=== PATIENT | male | born 1960 | race Caucasian/White ===

== ENCOUNTER 2016-09-10 13:00 | Inpatient (IN) | payer OTHER ==
[~2016-09-10] VITALS: Ht 177.8 cm; Wt 84.1 kg
[2016-09-10] VITALS (13 sets, daily range): BP systolic 99–142; BP diastolic 60–76; PULSE 42–64; RESP 10–20; O2SAT 97–99
--- NOTE | 2016-09-10 13:13 | ED.REPORT ---
HPI-Chest Pain 40 and Over Date of Service Sep 10, 2016 ED Provider: The patient is a 56 year old male with history of high cholesterol who presents to the emergency department complaining of chest pain that has been intermittent over the last 2 weeks. 2 weeks ago he had 2 episodes of right jugular pain on the right side after after exercise. He thought this was due to not eating before he worked out. He did not experience any symptoms until a few days ago when he felt bad while snowboarding and decided to stop and rest. He thought he was feeling bad due to not sleeping well the night before. Today at 1030 he had another episode and paid more attention and noticed he had substernal chest pressure that radiated into his left shoulder. He also noticed nausea and diaphoresis. [place] aspirin and nitroglycerin. His blood pressure was noted to be high (181/115) in the aid room. At this time he is feeling better but does mention some heart burn and headache. He denies shortness of breath, vomiting. Nursing Notes Stated Complaint: CHEST DISCOMFORT Chief Complaint: Chest Pain Nursing Notes Reviewed: Yes Allergies: Coded Allergies: No Known Allergies (Unverified , 09/10/16) General Time Seen by MD: 13:12 Chief Complaint Chest pain Hx Obtained From: Patient, Spouse, Son Arrived By: Walk-in Sudden in Onset?: Yes Onset Occurred: 1 - 4 hours ago Symptom Duration: Since onset Location: : Substernal Quality: Pressure Radiation: : Does not radiate Migration/Movement: Reports: None Severity: Current: Severe Severity: Maximum: No pain Recent Healthcare: No recent doctor visit, No recent hospitalization Similar Sx Previous: No Past Medical History Past Medical History High cholesterol Past Surgical History None Family History Noncontributory Smoking History Never Smoker Social History Alcohol Use: 1-3 per day (beer or wine) Drug Use: Denies drug use Other Social History: Good social support, , Local resident Occupation Medic Ambulatory Status Independent Review of Systems Review of Systems Note: +heart burn Constitutional: Reports: Fatigue Respiratory: Denies: Shortness of breath Cardiovascular: Reports: Chest pain GI: Reports: Nausea, Denies: Abdominal pain, Vomiting Musculoskeletal: Reports: Joint pain Skin: Reports Diaphoresis Neurologic: Reports: Headache Complete sys rev & neg: except as marked. Physical Exam Initial Vital Signs Vital Signs (First) Date Time Temp Pulse Resp B/P Pulse Ox O2 Delivery O2 Flow Rate FiO2 09/10/16 13:10 43 12 142/76 99 Room Air Initial VS: Reviewed Head / Eyes: Atraumatic, Normocephalic, PERRL ENT: Mucous membranes moist, Conjunctiva normal, No scleral icterus Neck: Supple, Non-tender, Full range of motion Lymphatic: No lymphadenopathy Extremities: Vascular intact, Neuro intact, No swelling, No tenderness Skin: Warm, Dry, No cyanosis Neurologic: Alert, Oriented, Nonfocal Psychiatric: Mood/affect normal, Behavior normal, Normal thought content General/Constitutional: Awake, Alert, No acute distress, Well appearing Respiratory / Chest: Atraumatic, Breath sounds NL, Breath sounds = bilat, No respiratory distress, No rales, No rhonchi, No wheezing, No stridor, No chest tenderness Cardiovascular: Heart rate NL, Regular rhythm, Heart sounds NL, No gallop, No murmurs, No rubs, Peripheral circulation NL, Pulses = bilaterally, No gross BP differential Abdomen: Atraumatic, Soft, Non-tender, McBurney's non-tender, No guarding, No rebound, BS normoactive, No distention, No hernia, No palpable mass Interpretation & Diagnostics Lab Results Interpretation Result Diagram: 09/10/16 1321 09/10/16 1321 Test 09/10/16 13:21 White Blood Count 12.3th/mm3 (3.8-10.1) Red Blood Count 5.17mil/mm3 (4.40-5.80) Hemoglobin 15.5g/dL (13.8-17.2) Hematocrit 43.8% (41.0-50.0) Mean Corpuscular Volume 84.7fL (81-100) Mean Corpuscular Hemoglobin 30.0pg (27.0-35.0) Mean Corpuscular Hemoglobin Concent 35.4% (32.0-37.0) Red Cell Distribution Width 12.9% (12.3-15.4) Platelet Count 230bil/L (150-400) Neutrophils (%) (Auto) 74.4% (40-74) Lymphocytes (%) (Auto) 17.1% (14-46) Monocytes (%) (Auto) 7.7% (4-12) Eosinophils (%) (Auto) 0.3% (0-5) Basophils (%) (Auto) 0.3% (0-3) Sodium Level 140mEq/L (134-144) Potassium Level 3.6mEq/L (3.5-5.2) Chloride Level 102mEq/L (97-108) Carbon Dioxide Level 24mmol/L (18-29) Blood Urea Nitrogen 15mg/dL (6-24) Creatinine 0.83mg/dL (0.76-1.27) Estimat Glomerular Filtration Rate 102mL/min (>59) Glucose Level 91mg/dL (60-99) Calcium Level 9.5mg/dL (8.5-10.1) Magnesium Level 2.1mg/dL (1.6-2.6) Total Bilirubin 0.5mg/dL (0.0-1.2) Aspartate Amino Transf (AST/SGOT) 18U/L (0-50) Alanine Aminotransferase (ALT/SGPT) 16U/L (0-44) Alkaline Phosphatase 62U/L (25-150) Troponin T 0.043ug/L (0.0-0.011) Total Protein 7.3g/dL (6.4-8.4) Albumin 4.8g/dL (3.4-5.0) ECG Interpretation ECG Interpretation: Sinus bradycardia with a rate of 46 ST elevation of 1 mm in V2-V5, no reciprocal changes No STEMI Time: 13:10 Interpreted by: ED physician ECG Interpretation: Reviewed with Dr. Caitlyn Keller point elevation ST elevation in V2-V5 No STEMI Time: 13:29 Interpreted by: ED physician ECG Interpretation: Progression of ST elevations Pt will be taken to tender labor Time: 14:26 Interpreted by: ED physician X-Ray Chest Interpretation Chest Xray Interpretation: IMPRESSION: No acute cardiopulmonary disease. Dictated by: Jose Luis DOTY Interpreted: Andreina Pugh MD on 09/10/2016 at 14:27 Interpretation / Wet Read by: Interpret - Radiologist Re-Eval/Medical Decision Source of Hx: Family Time of Eval: 13:22 Re-Evaluation/Progress Note: Dr. Damian is at bedside discussing the patient's history. Time of Eval: 14:21 Re-Evaluation/Progress Note: Rechecked the patient. He is still complaining of chest pressure. Discussed results and plan for admission. All questions were addressed. Time of Eval: 14:30 Re-Evaluation/Progress Note: The patient is being transferred to the tender labor. Consultation #1: Referral / Consult Name: Gurvinder Damian MD Consulted With: Cardiology Call Returned at: 13:20 Jukebox Route Driver: Agrees with eval, Agrees with plan Note: Discussed EKG findings Consultation #2: Referral / Consult Name: Gurvinder Damian MD Consulted With: Cardiology Call Returned at: 13:30 Note: Evaluated the repeat EKG, not concerning for STEMI Consultation #3: Referral / Consult Name: Gurvinder Damian MD Consulted With: Cardiology Call Returned at: 14:21 Jukebox Route Driver: Agrees with eval, Agrees with plan, Requested tender labor Counseled Regarding: Diagnosis, Lab results, Need for admission Discharge & Departure Primary Impression: Acute coronary syndrome Disposition: ADMITTED TO HOSPITAL Discharge Condition All VS Reviewed: Yes Condition: Stable Referrals: Venu Rodriguez MD (Family) Crit Care Except Billable Proc Time Spent: 30-74 minutes Services Performed: Patient management by me, Time spent at bedside, Reviewing test results, Reviewing imaging, Discussing patient care, Documentation in record, Time with fam/surrogate Scribe Attestation Portions of this note were transcribed by Lynn Argueta. I, Dr. Nunn personally performed the history, physical exam and medical decision-making; I reviewed and confirmed the accuracy of the information in the transcribed note. Signed by: Lisa Castillo, 09/10/2016 at 0170. copies to: Venu Rodriguez MD, Shawna L MD Sep 10, 2016 13:13 Lynn Argueta Sep 10, 2016 13:15
[2016-09-10] MEDS ORDERED: Nitroglycerin 50 mg/250 mL D5W 50,000 MCG in IV Premix 1 EACH IV ONE (13:20)
[2016-09-10] MEDS ORDERED: Heparin 25K Unit/500mL 0.45 NS 25,000 UNIT in IV Premix 1 EACH IV ONE (13:20)
[2016-09-10] MEDS ORDERED: Heparin 5,000 Unit/mL Inj IVPUSH ONE (13:20)
[2016-09-10] MEDS ORDERED: Nitroglycerin 50,000 mcg/250 mL D5W Premix IV ONE ×2 (13:28→14:25)
[2016-09-10 13:30] LABS: BASOPHILS % (AUTO) 0.3 % (0-3); EOSINOPHILS % (AUTO) 0.3 % (0-5); MONOCYTES % (AUTO) 7.7 % (4-12); Mean Corpuscular Volume 84.7 fL (81-100); NEUTROPHILS % (AUTO) 74.4 % (40-74); Platelet Count 230 bil/L (150-400)
[2016-09-10 14:02] LABS: Magnesium 2.1 mg/dL (1.6-2.6)
[2016-09-10 14:03] LABS: TROPONIN T 0.043 ug/L (0.0-0.011)
[2016-09-10] MEDS ORDERED: 0.9% Sodium Chloride 2,000 ML ONE (14:25)
[2016-09-10] MEDS ORDERED: Heparin 1,000 Unit/mL 10 mL Inj ONE ×4 (14:25→16:28)
[2016-09-10] MEDS ORDERED: Heparin 1,000 Units/500 mL NS Premix IV ONE (14:25)
--- NOTE | 2016-09-10 14:27 | DRSVH ---
PROCEDURE: X-RAY CHEST ONE VIEW, PORTABLE ([id number]) INDICATIONS: cp TECHNIQUE: One view of the chest was acquired. COMPARISON: None. FINDINGS: Surgical changes and devices: None. Lungs and pleura: No pleural effusions or pneumothorax. Lungs are clear. Mediastinum: Mediastinal contours appear normal. Heart size is normal. Bones and chest wall: No suspicious bony lesions. Overlying soft tissues appear unremarkable. IMPRESSION: No acute cardiopulmonary disease. Dictated by: Jose Luis Gotti [facility] Interpreted: Andreina Pugh MD on 09/10/2016 at 14:27 Transcribed by: DRISS on 09/10/2016 at 14:27 Approved by: Andreina Pugh MD, PhD on 09/10/2016 at 17:02
[2016-09-10] MEDS ORDERED: fentaNYL-PF 50 mCg/mL 2 mL Inj ONE ×3 (14:40→15:53)
[2016-09-10] MEDS ORDERED: Atropine 1 mg/10 mL (Code) Syringe ONE (15:06)
[2016-09-10] MEDS ORDERED: 0.9% Sodium Chloride 1,000 ML ONE ×2 (15:20→15:34)
[2016-09-10] MEDS ORDERED: DOPamine 800 mg/250 mL D5W Premix IV ONE (15:31)
[2016-09-10] MEDS ORDERED: Ondansetron 2 mg/mL 2 mL Inj ONE ×2 (15:42→15:51)
--- NOTE | 2016-09-10 17:40 | NUR ---
Arrival to CCU Patient escorted from trestle mainternance laborer to room 2014. Alert and oriented x 3. No reported pain at time of arrival. SB per quality assurance monitor body. Normotensive. Denies chest discomfort. Transparent dressing to right groin site, c/d/i. No swelling, pain or hematoma at groin site. Pulses intact. Sp02 >92% on room air. Patient oriented to room and call light. Plan of care reviewed. Will continue to monitor.
[2016-09-10] MEDS ORDERED: Atropine 1 mg/10 mL (Code) Syringe IVPUSH PRN (18:15)
[2016-09-10] MEDS ORDERED: 0.9% Sodium Chloride 250 ML BOLUS IV PRN (18:15)
[2016-09-10] MEDS ORDERED: 0.9% Sodium Chloride 400 ML (4 HRS) IV ONE (18:15)
[2016-09-10] MEDS ORDERED: Ondansetron 2 mg/mL 2 mL Inj IVPUSH PRN (18:15)
[2016-09-10] MEDS ORDERED: Sodium Chloride LOK Flush 10 mL Syringe IVFLUSH PRN (18:15)
--- NOTE | 2016-09-10 18:25 | DRSVH ---
[facility] [address] [facility] [facility] [address] Echocardiogram Report Name: MAK BRAGG Study Date: 09/10/2016 Hospital Exam Location: [facility] Gender: Male : 1960 Age: 56 yrs Reason For Study: NSTEMI Ordering Physician: Performed By: Aniya Connors Interpretation Summary No pericardial effusion. Procedure: A STAT limited 2D echocardiogram was done in the laborer tree tapping to assess for pericaridal effusion in the setting of stent placement. The study quality was technically good. Pericardium/ Pleura There is no pericardial effusion. Electronically signed by: Gurvinder Wall on Reading Physician:09/10/2016 06:24 PM
[2016-09-10] MEDS ORDERED: CREST10T PO (21:31)
--- NOTE | 2016-09-10 21:32 | DI95 ---
[address] [address] INTERVENTIONAL CARDIAC CATHETERIZATION PATIENT: MAK BRAGG : 1960 MR#: [id number] ADMIT: 09/10/2016 JOB ID: [id number] PATIENT PROFILE: The patient is a 56-year-old male who presented with non ST elevated myocardial infarction. PROCEDURE: 1. Retrograde left heart catheterization. 2. Selective coronary angiography. 3. Balloon angioplasty and stenting to the mid circumflex artery. 4. Vascular closure device, StarClose. COMPLICATION: Transient hypotension and coronary dissection. METHOD: Retrograde left heart catheterization was performed from the right groin under 1% lidocaine local anesthesia using a 6-Tajik sheath. Selective coronary angiogram was performed in multiple projections, including cranial and caudal angulations with hand injected contrast via JL4 and 3DRC catheters. Heparin 100 units/kg were given. A 6-Tajik JL4 guide was advanced to the left coronary ostium. A Run-through wire was placed inside the circumflex artery. The lesion was pre-dilated with a 1.25 mm and 2.0 mm balloons. This caused coronary dissection at this point. A 2.5 mm balloon was then used for further dilation of the mid circumflex artery. The patient required fluid bolus, atropine and intravenous dopamine. A Xience 2.25 x 15 mm stent was placed inside the distal mid circumflex artery lesion and deployed at 14 atmospheres for 15 seconds. A Xience 2.5 x 15 mm stent was placed proximal to the first stent and deployed at 10 atmospheres for 15 seconds. A Xience 2.75 x 12 mm stent was placed proximal to the second stent and deployed at 12 atmospheres for 15 seconds. A 2.5 mm balloon was used for post stent deployment dilation. It was inflated up to 16 atmospheres. A 3.0 mm balloon was used for post stent deployment dilation. It was inflated up to 8 atmospheres. An attempt to advance a Xience 2.25 x 12 mm stent to the distal lesion was unsuccessful. The distal lesion was then dilated with a 2.5 x 15 mm balloon. This balloon was inflated up to 14 atmospheres. A Xience 2.75 x 12 mm stent was placed proximal to the third stent and deployed at 14 atmospheres. Final angiogram was obtained. A 6-Tajik angulated pigtail catheter was advanced to the left ventricle and left ventricular pressure was obtained. Right femoral angiogram was performed before sheath removal. Hemostasis was achieved by using a StarClose device. The patient tolerated the procedure well. He was transferred to ICU in good condition. TOTAL CONTRAST USED: 280 cc. FLURO TIME: 20.7 minutes. RESULTS: 1. Selective coronary angiogram: a. Left main coronary artery has minimal disease. b. The left anterior descending artery is transapical and has diffuse irregularities of 20 to 30% stenosis. c. The codominant circumflex artery is occluded in the mid portion. There are faint collaterals filling from the 1st obtuse marginal branch and the left anterior descending into the distal circumflex artery. d. The codominant right coronary artery has diffuse disease with 30 % to 40% stenosis. 2. Balloon angioplasty and stenting was performed to the occluded mid circumflex artery by deploying four drug-eluting stents to achieve an excellent angiographic result with JORGE-3 flow distally. 3. Aortic pressure is 103/64 mmHg. Left ventricular pressure is 107/10 mmHg. 4. Left ventricular end-diastolic pressure is 18 mmHg. CONCLUSION: 1. Diffuse fyiz-bh-ysetmdbx coronary artery disease. 2. Occluded mid circumflex artery with [id number] collaterals to the distal circumflex artery. This was successfully treated with four drug-eluting stents. 3. LVEDP is 18 mmHg. MTDD
[2016-09-10] MEDS ORDERED: CHOL500051 PO (21:33)
[2016-09-10] MEDS ORDERED: OMEG300C3 PO (21:34)
--- NOTE | 2016-09-10 23:15 | NUR ---
Post Cath, Assumed care 1900. Denies chest pain or discomforts. Right groin site stable without hematoma or bleeding. Tele sinus pita with hr 40s to 50s. Blood pressure 100s systolic. Ivf Ns at 100ml/h. Ate 100% of dinner. Tolerated well. Spouse at bedside and updated. 2200 Right groin remains stable. Pt up to bathroom with minimal assist. Tolerated well. Post cath checks completed. Changed to PCC status. Iv Saline locked.
[2016-09-11] VITALS: BP 86/48; PULSE 45; RESP 16; O2SAT 98
--- NOTE | 2016-09-11 00:47 | NUR ---
Hypotension 0000 Blood pressure 86/48. Tele sinus rhythm 40s. PT alert and oriented. Denies pain or discomforts. Right groin site stable without bleeding or hematoma. NS 500ml iv bolus started and Dr Brady notified with orders received. Report given to Ignacio Mckeon
[2016-09-11 04:37] VITALS: BP 95/56; PULSE 48; RESP 16; O2SAT 96
[2016-09-11 04:50] LABS: Mean Corpuscular Hemoglobin 29.5 pg (27.0-35.0); Mean Corpuscular Volume 85.8 fL (81-100)
--- NOTE | 2016-09-11 06:11 | NUR ---
Cardiac Pt BP after 500mL bolus stable. MAP's 65-70. Pt denies CP, SOB or dizziness. Tele SB 40's groin site soft, mildly tender with no hematoma noted.
--- NOTE | 2016-09-11 06:58 | CONS ---
[address] [address] CONSULTATION REPORT PATIENT: MAK BRAGG : 1960 MR#: [id number] ADMIT: 09/10/2016 JOB ID: [id number] DATE OF SERVICE: 09/10/2016 REQUESTED BY: Annetta Nunn MD. REASON FOR EVALUATION: Chest discomfort. HISTORY: The patient is a 56 years old male with history of hypercholesterolemia. He otherwise has been healthy all his life. He is physically very active. The patient reported that he started feeling weird in the past few weeks. He had aching in his right jugular area with extreme physical exertion. He had been snowboarding for the past week. Today, while he was snowboarding with a lot of excitement with the adrenaline surge, he developed chest pressure. It was a squeezing sensation that radiated to his left shoulder. It happened around 10:30 a.m. His chest felt very tight. His blood pressure was 181/115 at that time. He took one nitroglycerin and his chest pressure subsided. Medics brought him to [facility] Emergency Department. The total episode of chest discomfort lasted for 2 hours. He feels back to his normal self at the present time. EKG on arrival shows sinus bradycardia rate 48 per minute. J-point elevation. PAST MEDICAL HISTORY: 1. Hypercholesterolemia. 2. Knee injury. CURRENT MEDICATIONS: 1. Crestor 10 mg 3 times per week. Higher dose of Crestor causes rhabdomyolysis. 2. Multivitamin. 3. Fish oil. 4. Vitamin D. ALLERGIES: HAZELNUTS cause lip swelling. SOCIAL HISTORY: He tried smoking a little when he was in grade seven. He drinks beer or wine, one glass per day. FAMILY HISTORY: His father from colon cancer. His sister suffered a stroke in her 50 's. REVIEW OF SYSTEMS: All 10 systems reviewed and noncontributory. PHYSICAL EXAMINATION: Reveals a middle-aged male, appears in no acute distress. Temperature is 36.1. Blood pressure initially was 142/75 and came down to 113/71. Pulse 53. Skin is warm and dry. Head and face have normal configuration. Anicteric sclerae. Moist mucosa. Neck: Supple. No jugular venous distention or carotid bruits. Chest: Normal expansion. Lungs are clear to auscultation. Heart: The first and second heart sounds normal. No gallop or murmur. Abdomen: Soft, nontender and without hepatosplenomegaly. Back: No CVA tenderness. Extremities: No clubbing, cyanosis, or edema. Peripheral pulses are equal bilaterally. Neurologic: Grossly intact. IMPRESSION: 1. Acute coronary syndrome, likely related to severe hypertension at that time. 2. Hypercholesterolemia. 3. History of rhabdomyolysis on high dose statin 4. Family history of premature atherosclerosis.. PLAN: The patient will be monitored in the telemetry unit. He will be treated with aspirin, nitroglycerin, IV heparin and statin. Serial cardiac enzymes and EKGs will be obtained. MTDD
[2016-09-11 08:00] VITALS: BP 98/61; PULSE 53; PULSE 57; RESP 18; O2SAT 96
--- NOTE | 2016-09-11 09:13 | DRSVH ---
[facility] [address] [place] [address] Echocardiogram Report Name: MAK BRAGG Study Date: 09/11/2016 Height: 70 in Hospital Exam Location: [facility] Weight: 185 lb Gender: Male BSA: 2. 0 m2 : 1960 Age: 56 yrs BP: 110 /58 mmHg Reason For Study: Chest pain Ordering Physician: Performed By: Oumar Gutierrez Referring Physician: XIANG SOLO Interpretation Summary Mild concentric left ventricular hypertrophy with ejection fraction 55-60%. There is basal inferior wall hypokinesis. Moderately dilated left atrium. Mildly dilated right atrium. Mild mitral regurgitation. Mild tricuspid regurgitation. Procedure: A two-dimensional transthoracic echocardiogram with color flow and Doppler was performed. The study quality was technically good. There is no prior echocardiogram noted for this patient. The patient was in sinus bradycardia with heart rates between 46-53 bpm during the exam. Left Ventricle: The left ventricle is normal in size. There is mild concentric left ventricular hypertrophy. The ejection fraction is estimated to be 55-60%. There is basal inferior wall hypokinesis. There are no other obvious focal wall motion abnormalities. Assessment of diastolic parameters indicates normal left ventricular diastolic function and normal filling pressures. Right Ventricle: The right ventricle is normal in size, thickness and function. Atria: The left atrium is moderately dilated. The right atrium is mildly dilated. The interatrial septum is intact with no evidence for an atrial septal defect. Mitral Valve: The mitral valve is normal. There is mild mitral regurgitation. Aortic Valve: The aortic valve is normal in structure and function. No aortic regurgitation is present. Tricuspid Valve: The tricuspid valve is normal. There is mild tricuspid regurgitation. The right ventricular systolic pressure is estimated at 26 mmHg assuming a right atrial pressure of 8 mm Hg. Pulmonic Valve: The pulmonic valve leaflets are thin and pliable; valve motion is normal. There is no pulmonic valvular regurgitation. Great Vessels: The aortic root is normal size. The dimensions of the ascending aorta are normal. The pulmonary artery is normal size. The IVC is dilated (diameter is greater than 2.1 cm) yet it collapses greater than 50% with a sniff. This suggests a right atrial pressure of 8 mm Hg. Pericardium/ Pleura There is no pericardial effusion. There is no pleural effusion. MMode/2D Measurements & Calculations LVIDd: 4.6 cm RA long axis: 5.6 cm LVOT diam: 2.4 cm LVIDs: 3.7 cm LA A2 area: 25.1 cm AoV Opening FS: 19.1 % LA A4 area: 28.0 cm RA area: 21.2 cm EPSS: 0.12 cm LA length (vol) RA vol: 68.2 ml Ao root diam IVSd: 1.3 cm RA : 33.8 ml/m2 LVPWd: 1.3 cm LA vol: 96.2 ml asc Aorta Diam LA vol index Ao Arch Diam (Prox Trans): 3.2 cm IVC diam: 2.5 cm EDV(MOD-sp2) LV rodríguez. diameter/BSA LV sys. diameter/BSA RVD1 (basal) : 133.8 ml (cm/m^2): 2.3 (cm/m^2): 1.9 : 4.0 cm TAPSE: 2.1 cm Doppler Measurements & Calculations Ao V2 max: 148.2 cm/sec MV E max samson MV E/A: 1.3 TR max samson Ao max P.8 mmHg : 84.6 cm/sec : 209.7 cm/sec Ao mean P.0 mmHg MV A max samson TR max PG LVOT Max Samson : 63.7 cm/sec : 17.6 mmHg : 123.4 cm/sec PA V2 max : 76.7 cm/sec THU(I,D): 3.9 cm PA mean PG sev ratio: 0.84 : 1.4 mmHg MV dec time: 0.15 sec Ao V2 mean LV V1 max PG PA V2 mean : 93.4 cm/sec : 56.9 cm/sec Ao V2 VTI: 30.5 cm LV V1 VTI PA pr(Accel) : 25.8 cm : 29.1 mmHg THU(V,D): 3.9 cm2 THU indexed to BSA (cm^2/m^2): 1.9 Electronically signed by: Xiang Wall on Reading Physician:09/11/2016 09:12 AM
[2016-09-11] MEDS ORDERED: PRAS10TA5 PO (10:49)
[2016-09-11] MEDS ORDERED: ASPI-973 PO (10:49)
[2016-09-11] MEDS ORDERED: EVOL140S SQ (10:49)
[2016-09-11] MEDS ORDERED: EZET10TA PO (10:49)
[2016-09-11] MEDS ORDERED: METO25TA6 PO (10:49)
[2016-09-11] MEDS ORDERED: LISI2.5T PO (10:49)
[2016-09-11] MEDS ORDERED: NITR0.4T6 SL (10:49)
--- NOTE | 2016-09-11 11:22 | NUR ---
Discharge: Pt s/p heart cath with multiple stents to circumflex artery. Stent cards given to pt/spouse, R groin site is soft/tender, pulses strong. IVs d/c'd intact. Excuse from work letter provided. Given care notes r/t evolocumab, lisinopril, ezetimibe, nitro, metoprolol, aspirin, prasugrel, clopidogrel, and low fat diet. Extensive discussion with pt/spouse r/t medications and access site care. Given cardiac cath discharge instructions hand-out. Pt/spouse verbalized understanding, denied any questions. Follow up with Dr Brady in October, phone number provided. D/c'd home with all personal belongings, providing transport.
--- NOTE | 2016-09-11 13:48 | DIS ---
[address] [address] DISCHARGE SUMMARY PATIENT: MAK BRAGG : 1960 MR#: [id number] ADMIT: 09/10/2016 JOB ID: [id number] DIS: 09/11/2016 ADMITTING DIAGNOSIS: Non ST elevated myocardial infarction. DISCHARGE DIAGNOSIS: Non ST elevated myocardial infarction. SECONDARY DIAGNOSES: 1. Hypercholesterolemia. 2. Family history of premature atherosclerotic disease. 3. History of rhabdomyolysis with high dose statin. 4. Sinus bradycardia. PROCEDURE: 1. Selective coronary angiogram. 2. Balloon angioplasty and stenting to the mid circumflex artery. COMPLICATION: Transient hypotension and coronary dissection. HISTORY: Please see the detailed history in the admission H and P. The patient is a 56-year-old male who has been healthy all his life. Yesterday while he was snowboarding, he had a lot of excitement with adrenalin surge He developed chest pressure. It was squeezing sensation and radiated to his left shoulder. The patient presented to [facility] emergency department. EKG shows sinus bradycardia with J-point elevation. However, the patient has elevation of troponin of 0.043. He then underwent urgent coronary angiogram. It demonstrated: 1. Diffuse [id number]-co-swzjbhkp coronary artery disease. 2. Occluded mid circumflex artery with jwib-te-skyc collaterals to the distal circumflex artery. 3. LVEDP is 18 mmHg. Balloon angioplasty and stenting was performed to the occluded mid circumflex artery by deploying four drug-eluting stents to achieve an excellent angiographic result with JORGE-3 flow distally. The patient was discharged from the hospital on the following day in good condition. He will return to see me in 4-6 weeks. He was referred to outpatient cardiac rehab. DISCHARGE MEDICATIONS: 1. Aspirin 81 mg daily. 2. Prasugrel 10 mg daily. 3. Lisinopril 2.5 mg daily. 4. Zetia 10 mg daily. 5. The patient will continue on Crestor 10 mg three times per week. 6. Nitroglycerin 0.4 mg sublingual p.r.n. 7. Metoprolol 25 mg p.o. as needed (he could not be on daily dose of beta fracisco due to sinus bradycardia). 8. Repatha 140 mg subcu every two weeks (once he starts Repatha he does not need to take Crestor and Zetia). BLOOD TESTS: From September 30, 2015 show cholesterol 304, triglyceride 175, HDL 51, LDL 218. MTDD
== END 2016-09-11 11:15 | disposition home or self-care (01) | DRG 246 ==
LOC: SED 13:00 → SPI 14:44 → CCU 17:45 → PCC 22:01
PROVIDERS: ADMIT Internal Medicine Interventional Cardiology; ATTEND Internal Medicine Interventional Cardiology
PROC: 027037Z Dilation of Coronary Artery, One Artery with Four or More Drug-eluting Intraluminal Devices, Percutaneous Approach (ICD-10-PCS; principal; 2016-09-10)
PROC: 4A023N7 Measurement of Cardiac Sampling and Pressure, Left Heart, Percutaneous Approach (ICD-10-PCS; 2016-09-10)
PROC: B2111ZZ Fluoroscopy of Multiple Coronary Arteries using Low Osmolar Contrast (ICD-10-PCS; 2016-09-10)
DX: I21.4 Non-ST elevation (NSTEMI) myocardial infarction (principal); I25.42 Coronary artery dissection; I97.88 Other intraoperative complications of the circulatory system, not elsewhere classified; E78.00 Pure hypercholesterolemia, unspecified; Z82.49 Family history of ischemic heart disease and other diseases of the circulatory system; I25.10 Atherosclerotic heart disease of native coronary artery without angina pectoris; Y84.0 Cardiac catheterization as the cause of abnormal reaction of the patient, or of later complication, without mention of misadventure at the time of the procedure; Y92.234 Operating room of hospital as the place of occurrence of the external cause